=== PATIENT | female | born 1995 | race Caucasian/White ===

== ENCOUNTER 2017-11-24 07:47 | Emergency (ER) | payer SELFPAY, MEDICAID ==
[2017-11-24] MEDS: IBUPROFEN 600 MG TAB PO (08:35)
== END 2017-11-24 09:12 | disposition left against medical advice (07) ==
LOC: FTE 09:12
DX: S69.92XA Unspecified injury of left wrist, hand and finger(s), initial encounter (principal); X58.XXXA Exposure to other specified factors, initial encounter; Y92.9 Unspecified place or not applicable
CPT/HCPCS: 99282